=== PATIENT | male | born 1945 | race Caucasian/White ===

== ENCOUNTER 2016-05-25 06:10 | Inpatient (IN) | payer MEDICARE ==
[2016-05-22 12:57] LABS: Basophils # (auto) 0.1 uL; Basophils % (auto) 0.7 % (0.0-2.0); Eosinophils # (auto) 0.3 uL; Eosinophils % (auto) 3.4 % (0.0-7.0); Hematocrit 42.2 % (41.0-53.0); Hemoglobin 13.7 g/dL (13.5-17.5); Lymphocytes # (auto) 2.6 uL; Lymphocytes % (auto) 35.5 % (10.0-50.0); Mean Corpuscular Hemoglobin 28.8 pg (28.0-32.0); Mean Corpuscular Hgb Conc. 32.4 g/dL (32.0-36.0); Mean Corpuscular Volume 88.9 fL (80.0-100.0); Monocytes # (auto) 0.6 uL; Monocytes % (auto) 7.6 % (0.0-12.0); Neutrophils # (auto) 3.9 uL; Neutrophils % (auto) 52.8 % (37.0-80.0); Platelet Count (auto) 245 10^3/uL (140-450); SUSPECT VIEW TRANSMISSION; White Blood Cell 7.4 10^3/uL (4.4-10.8)
[2016-05-22 13:00] LABS: Urine Bilirubin Negative (Negative); Urine Blood Negative /uL (Negative); Urine Color Yellow (Yellow); Urine Glucose Normal (Normal); Urine Ketone Negative (Negative); Urine Nitrite Negative (Negative); Urine RBC <1 /hpf (0 - 3); Urine Urobilinogen Normal (Negative); Urine pH 6.5 (5.0-8.0)
[2016-05-22 13:15] LABS: Calcium 8.9 mg/dL (8.5-10.1); Potassium 4.2 mmol/L (3.5-5.1)
[2016-05-22 13:17] LABS: INR 1.04 (0.9-1.15); Partial Thromboplastin Time 28.3 sec (22.64-33.71); Prothrombin Time 10.7 sec (9.37-12.3)
[2016-05-22 13:18] LABS: BUN/Creatinine Ratio 13.3
[~2016-05-25] VITALS: Ht 170.2 cm; Wt 80.9 kg
[2016-05-25] MEDS ORDERED: SUCCINYLCHOLINE CHLORIDE 20 MG/ML 10ML VIAL IV ONE (06:57)
[2016-05-25] MEDS ORDERED: fentaNYL CITRATE 100 MCG/2 ML VL ONE (07:01)
[2016-05-25] MEDS ORDERED: MIDAZOLAM HCL 1MG/1ML-2 ML VIAL ONE (07:02)
[2016-05-25] MEDS ORDERED: PROPOFOL 10 MG/ML 20 ML IV ONE (07:02)
[2016-05-25] MEDS ORDERED: ONDANSETRON HCL 4 MG/2 ML VIAL ONE (07:02)
[2016-05-25] MEDS ORDERED: ROCURONIUM 10MG/ML 10ML VIAL IV ONE (07:02)
[2016-05-25] MEDS ORDERED: PROMETHAZINE HCL 25 MG/ML 1ML IM ONE (07:30)
[2016-05-25] MEDS ORDERED: HYDROmorphone HCL 2 MG/ML VL IV PRN (07:30)
[2016-05-25] MEDS ORDERED: LEVOFLOXACIN 500MG 100 ML IV ONE (07:49)
[2016-05-25] MEDS ORDERED: ePHEDrine SULFATE 50 MG/ML AMP ONE (08:13)
[2016-05-25] MEDS ORDERED: FUROSEMIDE 20 MG/2 ML VIAL IV ONE (08:13)
[2016-05-25] MEDS ORDERED: GLYCOPYRROLATE 0.2 MG/ML 1ML VIAL ONE (08:52)
[2016-05-25] MEDS ORDERED: NEOSTIGMINE 1 MG/ML INJ (10mg/10ML VIAL) ONE (08:52)
[2016-05-25] MEDS ORDERED: NITROGLYCERIN 0.4 MG SL TAB SL PRN (11:45)
[2016-05-25 12:49] VITALS: BP 145/97
[2016-05-25 13:10] VITALS: BP 145/97
[2016-05-25 16:59] VITALS: BP 104/65
[2016-05-25 22:00] VITALS: BP 124/72
[2016-05-26 05:00] VITALS: BP 109/78
[2016-05-26 08:13] VITALS: BP 134/80
[2016-05-26] MEDS ORDERED: ACETAMINOPHEN 500 MG TAB PO PRN (12:15)
[2016-05-26 12:26] VITALS: BP 123/79
[2016-05-26 14:55] VITALS: BP 123/79
== END 2016-05-26 15:30 | disposition home or self-care (01) | DRG 708 ==
LOC: SUR 06:10 → WEST WING 06:11
PROVIDERS: ADMIT Urology; ATTEND Urology
PROC: 0V503ZZ Destruction of Prostate, Percutaneous Approach (ICD-10-PCS; principal; 2016-05-25 07:59)
DX: C61 Malignant neoplasm of prostate (principal); E78.5 Hyperlipidemia, unspecified; I10 Essential (primary) hypertension; Z88.0 Allergy status to penicillin
CPT/HCPCS: 36415; 80048; 81001; 85025; 85049; 85610; 85730; 87086; C2618; J0330; J1956; J2250; J2405; J2704

== ENCOUNTER 2017-02-25 23:37 | Emergency (ER) | payer MEDICARE ==
[~2017-02-25] VITALS: Ht 177.8 cm; Wt 86.2 kg
[2017-02-26] MEDS ORDERED: NIFEdipine 10 MG CAP PO ONE (00:45)
[2017-02-26 01:08] LABS: Basophils # (auto) 0.3 uL; Basophils % (auto) 3.5 % (0.0-2.0); Eosinophils # (auto) 0.4 uL; Eosinophils % (auto) 4.8 % (0.0-7.0); Hematocrit 40.4 % (41.0-53.0); Hemoglobin 13.5 g/dL (13.5-17.5); Lymphocytes # (auto) 2.3 uL; Lymphocytes % (auto) 28.4 % (10.0-50.0); Mean Corpuscular Hemoglobin 29.2 pg (28.0-32.0); Mean Corpuscular Hgb Conc. 33.4 g/dL (32.0-36.0); Mean Corpuscular Volume 87.5 fL (80.0-100.0); Mean Platelet Volume 8.8 fL (6.9-10.8); Monocytes # (auto) 0.6 uL; Monocytes % (auto) 7.9 % (0.0-12.0); Neutrophils # (auto) 4.4 uL; Neutrophils % (auto) 55.4 % (37.0-80.0); Nucleated Red Blood Cells % 0.1 %; Platelet Count (auto) 190 10^3/uL (140-450); Red Cell Distribution Width 14.5 % (11.8-14.3)
[2017-02-26 01:23] LABS: INR 0.96 (0.9-1.15); Partial Thromboplastin Time 28.5 sec (22.64-33.71); Prothrombin Time 10.5 sec (9.37-12.3)
[2017-02-26 01:26] LABS: Albumin 3.5 g/dL (3.4-5.0); BUN/Creatinine Ratio 21.2; Calcium 8.8 mg/dL (8.5-10.1)
[2017-02-26 01:29] LABS: Bilirubin, Total 0.3 mg/dL (0.2-1.0); Total Protein 7.6 g/dL (6.4-8.2)
[2017-02-26 03:48] VITALS: BP 132/77
== END 2017-02-26 04:26 | disposition home or self-care (01) ==
LOC: ER 23:40
DX: R04.0 Epistaxis (principal); I10 Essential (primary) hypertension; E78.5 Hyperlipidemia, unspecified; Z88.0 Allergy status to penicillin
CPT/HCPCS: 36415; 80053; 85025; 85610; 85730

== ENCOUNTER 2017-04-14 08:54 | Emergency (ER) | payer MEDICARE, BC ==
[~2017-04-14] VITALS: Ht 170.2 cm; Wt 81.6 kg
[2017-04-14] MEDS ORDERED: TETRACAINE HCL 0.5% OPTH(EYE) SOLN 4ML EACHEYE ONE (09:30)
[2017-04-14 09:45] VITALS: BP 180/92
[2017-04-14] MEDS ORDERED: FLUORESCEIN SOD 1 MG TEST STRIP OP ONE (09:45)
== END 2017-04-14 10:09 | disposition home or self-care (01) ==
LOC: ER 08:54
DX: S05.01XA Injury of conjunctiva and corneal abrasion without foreign body, right eye, initial encounter (principal); I10 Essential (primary) hypertension; E78.5 Hyperlipidemia, unspecified; Z88.0 Allergy status to penicillin; X58.XXXA Exposure to other specified factors, initial encounter; Y93.89 Activity, other specified; Y92.89 Other specified places as the place of occurrence of the external cause; Y99.8 Other external cause status

== ENCOUNTER 2017-04-27 11:42 | Emergency (ER) | payer MEDICARE, BC ==
[~2017-04-27] VITALS: Ht 170.2 cm; Wt 81.6 kg
[2017-04-27 11:50] VITALS: BP 151/102
[2017-04-27] MEDS ORDERED: NEOMYCIN-BACITRACIN-POLYM UNITDOSE PKG TOP OINT TOP ONE (13:30)
== END 2017-04-27 15:15 | disposition home or self-care (01) ==
LOC: EDUNIT# 11:42 → EDBD 11:42 → ER 11:42
DX: R04.0 Epistaxis (principal); I10 Essential (primary) hypertension; E78.5 Hyperlipidemia, unspecified; Z88.0 Allergy status to penicillin
CPT/HCPCS: 30901

== ENCOUNTER 2021-05-11 21:53 | Emergency (ER) | payer MEDICARE, OTHER ==
[~2021-05-11] VITALS: Ht 170.2 cm; Wt 90.7 kg
[2021-05-11 21:56] VITALS: BP 132/84
[2021-05-12 00:05] LABS: Basophils # (auto) 0.1 10 ^3/uL (0-0.2); Basophils % (auto) 1.5 % (0.0-2.0); Eosinophils # (auto) 0.4 10 ^3/uL (0-0.8); Hematocrit 35.8 % (41.0-53.0); Hemoglobin 12.2 g/dL (13.5-17.5); Lymphocytes # (auto) 3.1 10 ^3/uL (0.4-5.4); Lymphocytes % (auto) 34.2 % (10.0-50.0); Mean Corpuscular Hemoglobin 29.9 pg (28.0-32.0); Mean Corpuscular Hgb Conc. 34.1 g/dL (32.0-36.0); Mean Corpuscular Volume 87.7 fL (80.0-100.0); Monocytes # (auto) 0.9 10 ^3/uL (0-1.3); Monocytes % (auto) 9.7 % (0.0-12.0); Neutrophils # (auto) 4.4 10 ^3/uL (1.6-8.6); Neutrophils % (auto) 49.6 % (37.0-80.0); Red Blood Cells 4.08 10^6/uL (4.5-5.90); Red Cell Distribution Width 15.7 % (11.8-14.3); White Blood Cell 8.9 10^3/uL (4.4-10.8)
[2021-05-12 00:23] LABS: Albumin 3.7 g/dL (3.4-5.0); Calcium 8.8 mg/dL (8.5-10.1); Magnesium 2.8 mg/dL (1.6-2.6); Potassium 4.5 mmol/L (3.5-5.1)
[2021-05-12 00:25] LABS: INR 1.04 (0.9-1.15)
[2021-05-12 01:15] LABS: BUN/Creatinine Ratio 22.1; Bilirubin, Total 0.3 mg/dL (0.2-1.0); Total Protein 7.5 g/dL (6.4-8.2)
== END 2021-05-12 05:37 | disposition left against medical advice (07) ==
LOC: ER 22:01
DX: K92.2 Gastrointestinal hemorrhage, unspecified (principal); Z53.21 Procedure and treatment not carried out due to patient leaving prior to being seen by health care provider
CPT/HCPCS: 36415; 71045; 74176; 80053; 83735; 84484; 85025; 85610; 86850; 86900; 86901; 93005

== ENCOUNTER 2024-09-15 07:09 | Inpatient (IN) | payer OTHER ==
[2024-09-15] VITALS (10 sets, daily range): BP systolic 93–125; BP diastolic 58–74; PULSE 54–74; RESP 9–18; TEMP 97–98.1; O2SAT 93–95
[~2024-09-15] VITALS: Ht 170.2 cm; Wt 100.3 kg
[~2024-09-15 07:09] MED LIST: AMLO1TAB23 PO; ASPI1TAB20 PO; DOCU-94 PO; MELO15TA29 PO; PERCOT PO; TAMS-35 PO
[2024-09-15] MEDS ORDERED: PROPOFOL 10 MG/ML 20 ML IV ONE (08:19)
[2024-09-15] MEDS ORDERED: ONDANSETRON HCL 4 MG/2 ML VIAL ONE (08:19)
[2024-09-15] MEDS ORDERED: fentaNYL CITRATE 100 MCG/2 ML VL ONE (08:19)
[2024-09-15] MEDS ORDERED: KETAMINE 50mg/ML 1ml syringe ONE (08:19)
[2024-09-15] MEDS ORDERED: MORPHINE SULF PF 5 MG/10 ML VIAL ONE (08:19)
[2024-09-15] MEDS ORDERED: MIDAZOLAM HCL 2MG/2ML 2ml VIAL (1mg/ml) ONE (08:19)
[2024-09-15] MEDS ORDERED: ePHEDrine SULFATE 50 MG/ML AMP ONE (08:19)
[2024-09-15] MEDS ORDERED: GLYCOPYRROLATE 0.2 MG/ML 1ML VIAL ONE (08:20)
[2024-09-15] MEDS: PREGABALIN CAPSULE 75 MG CAP PO ONE (09:30)
[2024-09-15] MEDS: ACETAMINOPHEN IV 1000 MG/100ML (10MG/ML) IV ONE (09:30)
[2024-09-15] MEDS: CELECOXIB 100 MG CAP PO ONE (09:30)
[2024-09-15] MEDS ORDERED: KETOROLAC TROMETH 30 MG/ML 1ML VIAL ONE (10:27)
[2024-09-15] MEDS ORDERED: HYDROmorphone HCL 2 MG/ML VL/or syr IV PRN (11:00)
[2024-09-15] MEDS ORDERED: ONDANSETRON HCL 4 MG/2 ML VIAL IV PRN ×2 (11:00→11:15)
[2024-09-15] MEDS ORDERED: MORPHINE SULFATE INJ 2 MG/ml SYRG IV PRN (11:00)
[2024-09-15] MEDS ORDERED: NITROGLYCERIN 0.4 MG SL TAB SL PRN (11:00)
[2024-09-15] MEDS ORDERED: ceFAZolin 1GM/50ML 50 ML IV SCH (11:00)
--- NOTE | 2024-09-15 11:01 | DVHOP2 ---
Operative Report - 2 Report Details Date: 09/15/24 Preop Diagnosis: Left knee osteoarthritis Postop Diagnosis: Left knee osteoarthritis Surgeon: Frankie Palencia MD Supply Chain Procurement Manager: vKng GUZMÁN Anesthesiologist: Nir LUIS Anesthesia: Local, Regional Implant: [employer] Size 6 femur CR/ Size 6 tibia/ Size 9 Poly/ 32 mm patella Consent: The patient was informed of the risks and benefits of the procedure. These include but are not limited to complications of anesthesia, postoperative infection, incomplete relief of symptoms, recurrence of symptoms, damage to blood vessels, nerves and tendons, deep venous thrombosis, pulmonary embolism and possible need for repeat surgery in the future. Estimated Blood Loss: 50 cc Name of Procedure Performed Left total knee arthroplasty using computer navigation Procedure Details Procedure Details: FINDINGS: degenerative disease with grade IV changes with valgus deformity; hx of ACL surgery; large osteophytes with 15 degree flexion contracture/ 10 degree varus contracture INDICATION: This patient has failed non-operative treatments for knee arthritis and is now indicated for a total knee replacement. Preoperatively in the waiting area as well as in the office, I had a long discussion with the patient regarding the plan, the expected outcome, the risks, benefits, and alternatives of surgery. The risks include, but are not limited to, infection (which may require future surgery and removal of implants) , bleeding (which may require a transfusion), damage to nerves, arteries, veins, tendons, muscles and other adjacent structures. Also discussed the possibilities of intraoperative fractures, implant loosening, heterotopic bone formation, and revision for variety of reasons, and medical complications etc. This was discussed at length and consent has been obtained. DESCRIPTION OF PROCEDURE: In the preoperative holding area, the consent was reviewed and the appropriate extremity was verified by the patient and marked with my initials. The patient was then transferred to the operating theatre. Appropriate anesthesia was induced. All bony prominences were well padded. A time out was performed verifying the side and site of surgery according to standard protocol. Preoperative antibiotics were given 10 minutes prior to tourniquet inflation. Tranexamic was given. A well padded thigh tourniquet was applied. The extremity was then prepped and draped in the usual sterile fashion. The extremity was exsanguinated and the tourniquet was inflated. We then made a mid-line incision, which we continued to the underlying capsular tissue. We performed a medial parapatellar arthrotomy. We periosteally exposed the proximal tibia, excised the anterior fat pad and synovium from the distal aspect of the femur. We then subluxed the patella and brought the knee up into flexion. The lateral meniscus, ACL released. We used the appropriate guide with attached computer navigation to secure the distal femoral cutting block to the femur with pins and completed the distal femoral cut in 0 degrees to the mechanical axis with an oscillating saw. We removed the distal femoral cutting block and turned our attention to the tibia. We used the extramedullary tibial alignment guide with computer navigation to secure the proximal tibial cutting block to the tibia with pins, setting it for a 1mm cut from the more involved side, medially and completed the proximal tibial cut. We then used the spacer block and alignment rakesh to check the varus- valgus angle of our cuts and the extension gap. Patient noted to be tight medially that was tight so medial release done. The knee was then balanced in extension to varus/valgus stress. We marked our femoral anatomy, including Sidney's line and the epicondylar axis. Using that as a rotational guide, we used the sizing guide to size our femur properly, using a stylus to ensure there would be no notching. We then used the AP cutting guide to make our anterior and posterior cuts and chamfer cuts with an oscillating saw. We again checked the flexion and extension gaps and coronal balancing. Next, we sized our tibia and secured a baseplate with appropriate rotation with pins. We placed a trial femur in position and completed preparation of the notch with reamers and box osteotome and placed a trial notch in position. We used trials to choose our liner size and then placed the liner in place and reduced the knee. We used an oscillating saw to resurface the patella, and used a guide to choose the button size and completed patella preparation with the drill. We then placed a trial button in place. At this point, we checked our seven parameters: 1) Limb alignment 2) Extension 3) Flexion against gravity 4) Flexion stability 5) Varus-valgus balancing 6) Component rotation 7) Patella tracking We were satisfied with these and removed all trials with the exception of the baseplate. We completed preparation of the tibia with the appropriate reamer and keel impactor and then removed the baseplate. We placed a bone plug in the distal femur and then irrigated and dried all bony surfaces and injected our pain cocktail. Cement with antibiotics was hand-mixed on the back table. We thumb impacted cement into the proximal tibia, distal femur and patella and impacted our tibial, femoral and patellar components into position. Excess cement was removed with curettes. We impacted our liner and reduced the knee and held it with axial loading until all cement hardened. We did a juanita- articular cocktail block. Once all cement had hardened, we brought the knee back up into flexion and used an osteotome to remove excess cement. We released the tourniquet and achieved hemostasis where necessary. A dilute betadine solution (17.5mL in 500mL saline) was used to wash the joint and left to sit for 3 minutes. This was then irrigated out with copious amounts of pulse lavage. We sprinkled 1g vancomycin powder below the fascia and 1g above the fascia. We copiously irrigated the knee. We re-checked our seven parameters. We closed our capsular incision with a PDS style suture. We irrigated further. We closed the subcutaneous tissue with Vicryl suture and re-approximated the skin with Clare. We verified all lower extremity compartments were soft and compressible and that we had intact distal pulses. We wrapped the extremity in sterile Webril and brady bandage. The patient was transferred to the recovery room in stable condition. Condition Good Disposition Still a Patient FRANKIE PALENCIA . September 15, 2024 11:01
[2024-09-15] MEDS ORDERED: DexAMETHasone SOD PHOS 10MG/1ML VIAL INJ IV PRN (11:15)
[2024-09-15] MEDS ORDERED: NALOXONE HCL 0.4 MG/ML VIAL IV PRN (11:15)
--- NOTE | 2024-09-15 12:28 | DVH ---
Indication: S/P SURGERY Technique: 3 views left knee Comparison: None FINDINGS/IMPRESSION: Total left knee arthroplasty in anatomic alignment. Expected postoperative changes including surroun ding soft tissue emphysema, edema. Large suprapatellar effusion. Atherosclerotic calcification disea se.
[2024-09-15] MEDS: diphenhdrAMINE HCL 50 MG/1 ML VL IV PRN (14:12)
--- NOTE | 2024-09-15 16:42 | DVHINCON2 ---
Date Seen: September 16, 2024 Referring Physician ORTHOPEDIC SURGEON. Reason for Consultation MEDICAL MANAGEMENT. History of Present Illness 79-YEAR-OLD MALE WITH A KNOWN HISTORY OF HYPERTENSION, BPH, INITIALLY PRESENTED TO THE HOSPITAL FOR ELECTIVE PROCEDURE FOR LEFT KNEE DEGENERATIVE JOINT DISEASE STATUS POST LEFT KNEE TOTAL ARTHROPLASTY. PATIENT IS CURRENTLY DENIES ANY COMPLAINTS. Past Medical History HYPERTENSION BPH LEFT KNEE DEGENERATIVE JOINT DISEASE. Past Surgical History STATUS POST LEFT TOTAL KNEE ARTHROPLASTY. Family History: Cancer G8 FATHER FH: muscular dystrophy G8 MOTHER G8 BROTHER Family history: Diabetes mellitus G8 SISTER Allergies: Coded Allergies: Penicillins (Verified Allergy, Unknown, 05/22/16) Home Meds Reported Medications Aspirin (Aspir-81) 81 Mg Tab, 81 MG PO DAILY, TAB 09/12/24 Meloxicam (Meloxicam) 15 Mg Tab, 15 MG PO PRN, TAB 09/12/24 Docusate Sodium (Colace) 100 Mg Cap, 100 MG PO BIDP, CAP 09/12/24 Oxycodone W/ Acetaminophen (Percocet 5/325MG) 1 Tab Tb, 1 TAB PO Q6HP, TAB 09/12/24 Tamsulosin Hcl (Flomax) 0.4 Mg Cap, 0.4 MG PO DAILY, CAP 09/12/24 Amlodipine Besylate (Amlodipine Besylate) 10 Mg Tab, 10 MG PO DAILY, TAB 09/12/24 Current Medications Current Medications Medications (Trade) Dose Ordered Sig/Reagan Route PRN Reason Start Time Stop Time Status Last Admin Tamsulosin HCl (Flomax) 0.4 mg DAILY PO 09/16/24 10:00 Patient Own Medication 10 mg DAILY PO 09/16/24 10:00 UNV Lactated Ringer's 1,000 ml @ 100 mls/hr Q10H IV 09/15/24 11:00 Sodium Chloride (Saline Lock Ns) 10 ml Q8HR IV 09/15/24 14:00 Cefazolin Sodium 50 ml @ 50 mls/hr Q6H IV 09/15/24 11:00 09/15/24 23:59 Oxycodone/ Acetaminophen (Percocet 5/ 325MG Tablet) 1 tab Q4HP PRN PO MODERATE PAIN 09/15/24 11:00 Hydromorphone HCl (Dilaudid Injection) 1 mg Q2HP PRN IV SEVERE PAIN (7-10 PAIN SCALE) 09/15/24 11:00 Ondansetron HCl (Zofran) 4 mg Q6HP PRN IV NAUSEA / VOMITING 09/15/24 11:00 Docusate Sodium (Colace Capsule) 100 mg Q12HR PO 09/15/24 22:00 Nitroglycerin (Ntrostat Sublingual) 0.4 mg Q5MINP PRN SL FOR CHEST PAIN 09/15/24 11:00 Morphine Sulfate 2 mg Q30M PRN IV FOR CHEST PAIN 09/15/24 11:00 Cefepime HCl 50 ml @ 12.5 mls/hr DAILY IV 09/16/24 10:00 Diphenhydramine HCl (Benadryl Injection) 25 mg Q4HP PRN IV FOR ITCHING 09/15/24 11:15 09/15/24 14:12 Ondansetron HCl (Zofran) 4 mg Q4HP PRN IV NAUSEA / VOMITING 09/15/24 11:15 Naloxone HCl (Narcan) 0.2 mg Q5M PRN IV For respirations < than 10/min 09/15/24 11:15 09/15/24 14:07 DC Dexamethasone Sodium Phosphate (Decadron Injection) 10 mg QUILLER HAND PRN IV FOR ITCHING 09/15/24 11:15 09/15/24 14:07 DC Ketorolac Tromethamine (Toradol Injection) 15 mg Q6HP PRN IV MODERATE PAIN (4-6 PAIN SCALE) 09/15/24 11:15 09/20/24 11:14 Amlodipine Besylate (Norvasc Tablet) 10 mg DAILY PO 09/16/24 10:00 Review of Systems TWELVE REVIEW OF SYSTEM ARE NEGATIVE BESIDES MENTIONED ABOVE. Vital Signs Vital Signs Date Time Temp Pulse Resp B/P (MAP) Pulse Ox O2 Delivery O2 Flow Rate FiO2 09/15/24 15:00 62 10 121/66 (84) 96 09/15/24 13:30 Mask 10.0 94 09/15/24 11:08 98.0 98.0 Assessment 79-YEAR-OLD MALE WITH A KNOWN HISTORY OF HYPERTENSION, BPH, LEFT KNEE DEGENERATIVE JOINT DISEASE IS HERE FOR ELECTIVE PROCEDURE. 1. HYPERTENSION CONTROLLED 2. BPH RESUME TAMSULOSIN 3. LEFT KNEE DEGENERATIVE JOINT DISEASE STATUS POST LEFT TOTAL KNEE ARTHROPLASTY -PAIN MEDS NEEDED PHYSICAL THERAPY EVALUATION AND TREATMENT, RESUME HOME MEDICATIONS. Plan discussed with: Spouse Date of Service: September 15, 2024 Billing Provider: JAS SU MD Common Visit Codes: NOT BILLABLE JAS SU MD September 15, 2024 16:41
[2024-09-15] MEDS: LACTATED RINGER'S 1,000 ML IV SCH (21:00)
[2024-09-15] MEDS: ceFAZolin 1GM/50ML 50 ML IV SCH (21:50)
[2024-09-15] MEDS: DOCUSATE SOD 100 MG CAP PO SCH (22:03)
[2024-09-15] MEDS: SODIUM CHLOR 0.9% PF (SALINE LOCK) 10ML VIAL/SYR IV SCH (22:07)
[2024-09-16] VITALS (24 sets, daily range): BP systolic 0–133; BP diastolic 0–89; PULSE 0–82; RESP 0–18; TEMP 98–98.6; O2SAT 0–98
--- NOTE | 2024-09-16 08:01 | DVHPN2 ---
Progress Note Date Seen: September 16, 2024 Medical Necessity Reason Pt with a Central, PICC or Fol: Yes The following are medically ne: Jolley Catheter Subjective Patient reports: No new complaints Objective vital signs Vital Sign Date Time Temp Pulse Resp B/P (MAP) Pulse Ox O2 Delivery O2 Flow Rate FiO2 09/16/24 07:00 82 16 96 09/16/24 05:00 98.2 123/67 (85) 98.2 09/15/24 21:00 3.0 09/15/24 20:00 Simple Mask* 50 Total Intake and Output 09/15/24 09/15/24 09/16/24 15:00 23:00 07:00 Intake Total 100 ml 170 ml 1300 ml Output Total 250 ml Balance 100 ml 170 ml 1050 ml medications Current Medications Medications Dose Ordered Sig/Reagan Route Start Time Stop Time Status Last Admin Dose Admin Tamsulosin HCl 0.4 mg DAILY PO 09/16/24 10:00 Patient Own Medication 10 mg DAILY PO 09/16/24 10:00 UNV Lactated Ringer's 1,000 ml @ 100 mls/hr Q10H IV 09/15/24 11:00 09/15/24 21:00 100 MLS/HR Sodium Chloride 10 ml Q8HR IV 09/15/24 14:00 09/16/24 06:00 10 ML Oxycodone/ Acetaminophen 1 tab Q4HP PRN PO 09/15/24 11:00 Hydromorphone HCl 1 mg Q2HP PRN IV 09/15/24 11:00 Ondansetron HCl 4 mg Q6HP PRN IV 09/15/24 11:00 Docusate Sodium 100 mg Q12HR PO 09/15/24 22:00 09/15/24 22:03 100 MG Nitroglycerin 0.4 mg Q5MINP PRN SL 09/15/24 11:00 Morphine Sulfate 2 mg Q30M PRN IV 09/15/24 11:00 Cefepime HCl 50 ml @ 12.5 mls/hr DAILY IV 09/16/24 10:00 Diphenhydramine HCl 25 mg Q4HP PRN IV 09/15/24 11:15 09/15/24 14:12 25 MG Ondansetron HCl 4 mg Q4HP PRN IV 09/15/24 11:15 Ketorolac Tromethamine 15 mg Q6HP PRN IV 09/15/24 11:15 09/20/24 11:14 Amlodipine Besylate 10 mg DAILY PO 09/16/24 10:00 Cefazolin Sodium 50 ml @ 50 mls/hr Q6H IV 09/15/24 22:00 09/16/24 10:59 09/16/24 03:30 50 MLS/HR Examination: GENERAL:Normal, MSK:Abnormal Problem List/Assessment/Plan Problem List/Assessment/Plan 79 year old male who is s/p Left TKA POD 1 1. Pain control 2. WBAT LLE with use of walker 3. CPM as ordered 4. Physical therapy 5. d/c planning for home tomorrow 6. d/c jolley cath to encourage ambulation and reduce risk for infection Plan discussed with: Patient Date of Service: September 16, 2024 Billing Provider: FAMILIA PALENCIA MD Common Visit Codes: NOT BILLABLE ZULAY MORENO NP September 16, 2024 08:01
[2024-09-16] MEDS ORDERED: PATIENTS OWN MEDICATION (Amlodipine Besylate 10 MG) PO SCH (10:00)
[2024-09-16] MEDS: amLODIPine BESYLATE 5 MG TAB PO SCH (10:00)
[2024-09-16] MEDS: TAMSULOSIN HYDROCHLORIDE 0.4 MG CAP PO SCH (10:01)
[2024-09-16] MEDS: CEFEPIME 1GM/ 50ML 50 ML IV SCH (12:34)
--- NOTE | 2024-09-16 16:16 | DVHPN2 ---
Subjective OVERNIGHT EVENTS NOTED. Changes from previous H/P or p: No Changes Objective Vitals Vital Signs Date Time Temp Pulse Resp B/P (MAP) Pulse Ox O2 Delivery O2 Flow Rate FiO2 09/16/24 15:52 74 16 96 09/16/24 13:00 98.1 124/64 (84) 98.1 09/16/24 08:10 Simple Mask* 6 50 Intake/Output Intake and Output 09/16/24 07:00 Intake Total 1570 ml Output Total 250 ml Balance 1320 ml Intake Oral 520 ml IV Total 1050 ml Output Urine Total 250 ml Medications Current Medications Medications Dose Ordered Sig/Reagan Route Start Time Stop Time Status Last Admin Dose Admin Tamsulosin HCl 0.4 mg DAILY PO 09/16/24 10:00 09/16/24 10:01 0.4 MG Patient Own Medication 10 mg DAILY PO 09/16/24 10:00 UNV Lactated Ringer's 1,000 ml @ 100 mls/hr Q10H IV 09/15/24 11:00 09/16/24 12:40 100 MLS/HR Sodium Chloride 10 ml Q8HR IV 09/15/24 14:00 09/16/24 14:22 10 ML Oxycodone/ Acetaminophen 1 tab Q4HP PRN PO 09/15/24 11:00 Hydromorphone HCl 1 mg Q2HP PRN IV 09/15/24 11:00 Ondansetron HCl 4 mg Q6HP PRN IV 09/15/24 11:00 Docusate Sodium 100 mg Q12HR PO 09/15/24 22:00 09/16/24 10:10 100 MG Nitroglycerin 0.4 mg Q5MINP PRN SL 09/15/24 11:00 Morphine Sulfate 2 mg Q30M PRN IV 09/15/24 11:00 Cefepime HCl 50 ml @ 12.5 mls/hr DAILY IV 09/16/24 10:00 09/16/24 12:34 12.5 MLS/HR Diphenhydramine HCl 25 mg Q4HP PRN IV 09/15/24 11:15 09/15/24 14:12 25 MG Ondansetron HCl 4 mg Q4HP PRN IV 09/15/24 11:15 Ketorolac Tromethamine 15 mg Q6HP PRN IV 09/15/24 11:15 09/20/24 11:14 Amlodipine Besylate 10 mg DAILY PO 09/16/24 10:00 09/16/24 10:00 10 MG Assessment/Plan Assessment/Plan 79-YEAR-OLD MALE WITH A KNOWN HISTORY OF HYPERTENSION, BPH, LEFT KNEE DEGENERATIVE JOINT DISEASE IS HERE FOR ELECTIVE PROCEDURE. 1. HYPERTENSION CONTROLLED 2. BPH RESUME TAMSULOSIN 3. LEFT KNEE DEGENERATIVE JOINT DISEASE STATUS POST LEFT TOTAL KNEE ARTHROPLASTY -PAIN MEDS NEEDED PHYSICAL THERAPY EVALUATION AND TREATMENT, RESUME HOME MEDICATIONS. Plan discussed with: Spouse Date of Service: September 16, 2024 Billing Provider: JAS SU MD Common Visit Codes: NOT BILLABLE JAS SU MD September 16, 2024 16:16
[2024-09-16] MEDS: OXYCODONE W/ ACETAMINOPHEN 5/325MG TABLET PO PRN (16:17)
[2024-09-17] VITALS (9 sets, daily range): BP systolic 110–156; BP diastolic 65–88; PULSE 67–80; RESP 18–20; TEMP 97–99; O2SAT 95–98
[2024-09-17] MEDS: KETOROLAC TROMETH 30 MG/ML 1ML VIAL IV PRN (12:01)
--- NOTE | 2024-09-17 15:01 | DVHPN2 ---
Subjective OVERNIGHT EVENTS NOTED. Changes from previous H/P or p: No Changes Objective Vitals Vital Signs Date Time Temp Pulse Resp B/P (MAP) Pulse Ox O2 Delivery O2 Flow Rate FiO2 09/17/24 13:00 97.4 71 20 130/65 (86) 98 97.4 09/17/24 08:00 Simple Mask* 6 50 Intake/Output Intake and Output 09/17/24 07:00 Intake Total 1400 ml Output Total 5200 ml Balance -3800 ml Intake Oral 1100 ml IV Total 300 ml Output Urine Total 5200 ml Medications Current Medications Medications Dose Ordered Sig/Reagan Route Start Time Stop Time Status Last Admin Dose Admin Tamsulosin HCl 0.4 mg DAILY PO 09/16/24 10:00 09/17/24 09:01 0.4 MG Patient Own Medication 10 mg DAILY PO 09/16/24 10:00 UNV Lactated Ringer's 1,000 ml @ 100 mls/hr Q10H IV 09/15/24 11:00 09/17/24 02:05 100 MLS/HR Sodium Chloride 10 ml Q8HR IV 09/15/24 14:00 09/16/24 22:19 10 ML Oxycodone/ Acetaminophen 1 tab Q4HP PRN PO 09/15/24 11:00 09/17/24 09:02 1 TAB Hydromorphone HCl 1 mg Q2HP PRN IV 09/15/24 11:00 Ondansetron HCl 4 mg Q6HP PRN IV 09/15/24 11:00 Docusate Sodium 100 mg Q12HR PO 09/15/24 22:00 09/17/24 09:01 100 MG Nitroglycerin 0.4 mg Q5MINP PRN SL 09/15/24 11:00 Morphine Sulfate 2 mg Q30M PRN IV 09/15/24 11:00 Cefepime HCl 50 ml @ 12.5 mls/hr DAILY IV 09/16/24 10:00 09/17/24 09:00 12.5 MLS/HR Diphenhydramine HCl 25 mg Q4HP PRN IV 09/15/24 11:15 09/15/24 14:12 25 MG Ondansetron HCl 4 mg Q4HP PRN IV 09/15/24 11:15 Ketorolac Tromethamine 15 mg Q6HP PRN IV 09/15/24 11:15 09/20/24 11:14 09/17/24 12:01 15 MG Amlodipine Besylate 10 mg DAILY PO 09/16/24 10:00 09/17/24 09:00 10 MG Assessment/Plan Assessment/Plan 79-YEAR-OLD MALE WITH A KNOWN HISTORY OF HYPERTENSION, BPH, LEFT KNEE DEGENERATIVE JOINT DISEASE IS HERE FOR ELECTIVE PROCEDURE. 1. HYPERTENSION CONTROLLED 2. BPH RESUME TAMSULOSIN 3. LEFT KNEE DEGENERATIVE JOINT DISEASE STATUS POST LEFT TOTAL KNEE ARTHROPLASTY -PAIN MEDS NEEDED PHYSICAL THERAPY EVALUATION AND TREATMENT, RESUME HOME MEDICATIONS. Plan discussed with: Patient Date of Service: September 17, 2024 Billing Provider: JAS SU MD Common Visit Codes: NOT BILLABLE JAS SU MD September 17, 2024 15:01
[2024-09-18] VITALS (8 sets, daily range): BP systolic 129–163; BP diastolic 67–97; PULSE 69–94; RESP 17–19; TEMP 98–99.1; O2SAT 92–97
--- NOTE | 2024-09-18 07:53 | DVHDS2 ---
Discharge Summary Date of Admission September 15, 2024 at 10:52 Date of Discharge: September 18, 2024 Wounds: 1. You will likely have a gel-type dressing over your wound, you may keep this on for 7-14 days after leaving the hospital until your first post-op visit, unless it becomes soiled or your skin becomes irritated. If a wound vac dressing is placed on your knee this is to be left in place for one week and will be changed as needed. After your remove the dressing or wound vac, the home health nurse may place clean dry dressing over your wound. Keep wound covered, clean and dry for two weeks. 2. [place] will be removed during your initial post-op visit. If you have concerns about our wound, please call the office immediately. If nervous about staple removal can take pain pill one hour prior to appointment. 3. If there is drainage from your wound, change the dressing daily until it stops. If drainage lasts more than 10 days, call our office. 4. Low grade (up to 100 degrees) fever is common for the first week after surgery. You should take your temperature daily. If you have fevers of 101 or more, please call the office. Brief Hx & Hospital Course: s/p left total knee arthroplasty Condition at Discharge: Good Final Diagnosis/Problems List Left knee osteoarthritis Discharge Disposition: Custodial Facility Discharge Instruct/Medications Diet: Regular Diet comment: may advance diet as tolerated, drink plenty of fluids Activity comment: 1.You can bear as much weight as you tolerate on your knee unless specifically instructed otherwise. You may use the walking aid which you were discharged with and switch to a cane whenever you feel comfortable doing so. You should use an assistive device until you can walk comfortably without it. Keep in mind that every patient moves at their own speed of recovery so take your time. 2.A physical therapist will visit you at home. 3.Use CPM machine as instructed (6 hours a day) and increase flexion by 5 degrees daily. 4.High impact activity such as jumping, aerobics, tennis, and skiing are not permitted during the first 3 months after surgery. These activities can contribute to accelerated wear and should be done with caution after this time. Discuss this with your surgeon if you have questions. 5.Although a bath or whirlpool is NOT permitted during the first 2-3 weeks, you may shower as soon as you get home from the hospital provided there is no wound drainage. Place a dressing or covering over the wound when you shower. 6.Swimming is not permitted until the wound is healed, which typically occurs approximately 3-4 weeks after surgery. Follow Up/Referral: 1.Driving is not permitted within the first 2 weeks. 2.Your first postoperative visit will take place 2 weeks after discharge. Please call the office once you are home from the hospital to arrange this appointment. 3.Antibiotic preventative treatment is required before dental or other invasive procedures. Please ask your surgeon about this at your first postoperative visit. If you experience chest pain, shortness of breath or severe painful calf swelling, go to the nearest emergency room to be evaluated. Please call our office once your situation is stabilized. Medications: 1.You will be discharged with pain medication, a blood thinner (unless you were previously on a blood thinner prior to surgery) and stool softener. Please follow the instructions regarding these medications as provided by your nurse at the hospital upon discharge. 2.Blood clots in the leg are a known complication of surgery. It is very important that you take the medication to protect against clots. Depending on what you are discharged on typically it is Lovenox 40mg daily for 2 weeks or Aspirin 81mg twice daily for 4 weeks. After you finish this, you should then take baby Aspirin (81mg) once daily for 2 weeks. 3.You should restart all of your prescription medications once discharged from the hospital/surgery center unless specifically instructed otherwise. 4.Herbal supplements may be restarted 2 weeks after surgery. 5.If you have been given Coumadin as a blood thinner, please follow up with your ticketer during the first two weeks after surgery to review medications and overall medical well-being. 6.Please note that narcotic pain medication may cause constipation. Please remember to take stool softeners (Colace) when using narcotics to help reduce the change of constipation. You should not use alcohol together with narcotic medication. Discharge Statement: "Patient was advised to return to the ER or call 911 if any headaches, dizziness, shortness of breath, chest pain, abdominal pain, bleeding, fevers, or worsening of medical condition. Patient was counseled about treatment plan, medications, possible side effects, patientverbalized understanding. All questions were answered to the best of my ability. This discharge took greater then 30 minutes in planning, reviewing documentation, counseling the patient, and discussing with other team members." ASSESSMENT ASSESSMENT Assessment Left knee osteoarthritis ZULAY MORENO NP September 18, 2024 07:52
[2024-09-18] MEDS: CELECOXIB 100 MG CAP ONE (11:04)
[2024-09-18] MEDS: PREGABALIN CAPSULE 75 MG CAP ONE (11:05)
[2024-09-18] MEDS: ceFAZolin 2 GM/D5W50ml 50 ML IV ONE (11:06)
[2024-09-18] MEDS: ACETAMINOPHEN IV 100 ML IV ONE (11:06)
[2024-09-18] MEDS: TRANEXAMIC ACID 20 ML ONE (11:07)
[2024-09-18] MEDS: BUPIVACAINE HCL 50 ML ONE (11:07)
[2024-09-18] MEDS: diphenhdrAMINE HCL 50 MG/1 ML VL ONE (11:08)
[2024-09-18] MEDS: CEFEPIME 1GM/ 50ML 50 ML IV ONE (11:08)
[2024-09-18 15:52] LABS: Basophils # (auto) 0.1 10 ^3/uL (0-0.2); Eosinophils # (auto) 0.2 10 ^3/uL (0-0.8); Eosinophils % (auto) 1.7 % (0.0-7.0); Hematocrit 35.5 % (41.0-53.0); Lymphocytes # (auto) 1.4 10 ^3/uL (0.4-5.4); Lymphocytes % (auto) 14.6 % (10.0-50.0); Mean Corpuscular Hemoglobin 29.7 pg (28.0-32.0); Mean Corpuscular Hgb Conc. 33.9 g/dL (32.0-36.0); Mean Corpuscular Volume 87.5 fL (80.0-100.0); Monocytes # (auto) 1.1 10 ^3/uL (0-1.3); Monocytes % (auto) 11.4 % (0.0-12.0); Neutrophils % (auto) 71.3 % (37.0-80.0); Platelet Count (auto) 185 10^3/uL (140-450); Red Blood Cells 4.05 10^6/uL (4.5-5.90); Red Cell Distribution Width 14.9 % (11.8-14.3); White Blood Cell 9.8 10^3/uL (4.4-10.8)
[2024-09-18 16:03] LABS: Chloride 99 mmol/L (98-107)
[2024-09-18 16:04] LABS: Anion Gap 8 (5-15); Calcium 10.1 mg/dL (8.7-10.4); Carbon Dioxide 28 mmol/L (20-31); Sodium 135 mmol/L (136-145)
[2024-09-18 16:09] LABS: BUN/Creatinine Ratio 19.5 (10.0-20.0); Blood Urea Nitrogen 15 mg/dL (9-23); Glucose 119 mg/dL (74-106)
[2024-09-18] MEDS: ENOXAPARIN SOD 40 MG/0.4 ML SYRINGE SC ONE (16:09)
--- NOTE | 2024-09-18 16:27 | DVHPN2 ---
Subjective OVERNIGHT EVENTS NOTED. The patient was desatting to 80s on room air, currently on O2 supplementation at 2 L. stat D-dimer is were already which were elevated, we will do the CT angio to rule out PE, incentive spirometry at bedside. 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 Medications Current Medications Medications Dose Ordered Sig/Reagan Route Start Time Stop Time Status Last Admin Dose Admin Tamsulosin HCl 0.4 mg DAILY PO 09/16/24 10:00 09/18/24 09:11 0.4 MG Patient Own Medication 10 mg DAILY PO 09/16/24 10:00 UNV Lactated Ringer's 1,000 ml @ 100 mls/hr Q10H IV 09/15/24 11:00 09/18/24 09:13 100 MLS/HR Sodium Chloride 10 ml Q8HR IV 09/15/24 14:00 09/18/24 16:02 10 ML Oxycodone/ Acetaminophen 1 tab Q4HP PRN PO 09/15/24 11:00 09/18/24 13:34 1 TAB Hydromorphone HCl 1 mg Q2HP PRN IV 09/15/24 11:00 Ondansetron HCl 4 mg Q6HP PRN IV 09/15/24 11:00 Docusate Sodium 100 mg Q12HR PO 09/15/24 22:00 09/18/24 13:33 100 MG Nitroglycerin 0.4 mg Q5MINP PRN SL 09/15/24 11:00 Morphine Sulfate 2 mg Q30M PRN IV 09/15/24 11:00 Cefepime HCl 50 ml @ 12.5 mls/hr DAILY IV 09/16/24 10:00 09/18/24 09:13 12.5 MLS/HR Diphenhydramine HCl 25 mg Q4HP PRN IV 09/15/24 11:15 09/15/24 14:12 25 MG Ondansetron HCl 4 mg Q4HP PRN IV 09/15/24 11:15 Ketorolac Tromethamine 15 mg Q6HP PRN IV 09/15/24 11:15 09/20/24 11:14 09/17/24 23:09 15 MG Amlodipine Besylate 10 mg DAILY PO 09/16/24 10:00 09/18/24 09:10 10 MG Enoxaparin Sodium 40 mg DAILY SC 09/19/24 10:00 Laboratory Results Laboratory Tests 09/18/24 15:33 Chemistry Test 09/18/24 15:33 Calcium Level 10.1 mg/dL (8.7-10.4) Coagulation Test 09/18/24 15:33 D-Dimer, Quantitative 3.62 mg/L FEU (0.0-0.49) H Assessment/Plan Assessment/Plan 79-YEAR-OLD MALE WITH A KNOWN HISTORY OF HYPERTENSION, BPH, LEFT KNEE DEGENERATIVE JOINT DISEASE IS HERE FOR ELECTIVE PROCEDURE. 1. HYPERTENSION CONTROLLED 2. BPH, on TAMSULOSIN 3. LEFT KNEE DEGENERATIVE JOINT DISEASE STATUS POST LEFT TOTAL KNEE ARTHROPLASTY 4. Acute hypoxia suspected secondary to atelectasis, rule out pulmonary embolism 5. Elevated D-dimer to rule out PE , although clinical suspicion is low -continue DVT prophylaxis. -CT angio to rule out PE, incentive spirometry at bedside -hold discharge tonight, the patient can be discharged tomorrow if CT angio is negative for PE. Plan discussed with: Patient My Orders Orders - JAS SU MD Procedure Category Date Status Time Discontinue Tele FAYE 09/17/24 In Process 16:44 Enoxaparin Sodium PHA 09/19/24 In Process (Lovenox) 10:00 Communication Order ORDERS 09/18/24 Transmitted 15:[address] 09/18/24 Logged Contrast 16:13 Bilat Lower Dvt US 09/18/24 Logged 16:22 Date of Service: September 18, 2024 Billing Provider: JAS SU MD Common Visit Codes: NOT BILLABLE JAS SU MD September 18, 2024 16:27
[2024-09-18] MEDS ORDERED: IOHEXOL 350 MG/ML 100ML IJ ONE (16:39)
--- NOTE | 2024-09-18 17:30 | DVH ---
Indication: R/O PE Technique: CT axial images of the chest are obtained with intravenous contrast per CT angiogram prot ocol. Coronal and sagittal reformats were obtained. Radiation Dose Information: CTDI volume is 23.92 mGy. Dose-length product is 860.49 mGy*cm Comparison: None FINDINGS: No filling defect within the main , left and right pulmonary arteries. Trachea patent. No pneumothorax. Bilateral atelectasis. 5 mm left lower lobe solid nodule. Heart enlarged. Small pericardial effusion. Coronary artery calcification disease. Aortic atheroscl erotic disease. 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 No aggressive osseous process. IMPRESSION: 1. No evidence for large pulmonary embolism. 2. Atherosclerotic disease. 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 Recom mend thoracic surgery consultation for further management. 3. Cardiomegaly. Small pericardial effusion. Coronary artery calcification disease. 4. 5 mm left lower lobe solid nodule. Recommend follow-up per Fleischner society criteria. 5. Other findings as described.
--- NOTE | 2024-09-18 17:49 | DVH ---
Bilateral lower extremity venous duplex Clinical History: Rule out DVT Comparison: None Technique: Duplex Doppler evaluation of the deep venous systems of both lower extremities from the common femora l veins to the popliteal veins including color Doppler and spectral/pulsed waveform analysis was perf ormed. Findings: RIGHT SIDE: The common femoral vein demonstrates appropriate compressibility and waveform variability. There is compressibility/patency of the great saphenous vein at the proximal thigh. The femoral vein demonstrates appropriate compressibility and waveform variability. The deep femoral vein demonstrates appropriate compressibility and waveform variability. The popliteal vein demonstrates appropriate compressibility and waveform variability. There is normal compressibility at the tibioperoneal trunk. LEFT SIDE: The common femoral vein demonstrates appropriate compressibility and waveform variability. There is compressibility/patency of the great saphenous vein at the proximal thigh. The femoral vein demonstrates appropriate compressibility and waveform variability. The deep femoral vein demonstrates appropriate compressibility and waveform variability. The popliteal vein demonstrates appropriate compressibility and waveform variability. There is normal compressibility at the tibioperoneal trunk. Suggestion of a pseudo aneurysm of the right popliteal artery with thrombus. Impression: 1. No right or left femoropopliteal venous thrombosis. 2. 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
[2024-09-19 05:00] VITALS: BP 141/79; PULSE 68; RESP 18; TEMP 98.6; O2SAT 94
[2024-09-19 06:22] LABS: Anion Gap 7 (5-15); Carbon Dioxide 29 mmol/L (20-31); Chloride 100 mmol/L (98-107); Sodium 136 mmol/L (136-145)
[2024-09-19 06:23] LABS: Calcium 9.4 mg/dL (8.7-10.4)
[2024-09-19 06:28] LABS: BUN/Creatinine Ratio 18.8 (10.0-20.0); Blood Urea Nitrogen 15 mg/dL (9-23); Glucose 103 mg/dL (74-106)
[2024-09-19 09:00] VITALS: BP 144/76; PULSE 71; RESP 17; TEMP 98.4; O2SAT 94
[2024-09-19] MEDS: ENOXAPARIN SOD 40 MG/0.4 ML SYRINGE SC SCH (09:04)
--- NOTE | 2024-09-19 12:08 | DVHPN2 ---
Subjective OVERNIGHT EVENTS NOTED. PATIENT'S CT ANGIO SHOWS NO EVIDENCE OF PE. 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 Medications Current Medications Medications Dose Ordered Sig/Reagan Route Start Time Stop Time Status Last Admin Dose Admin Tamsulosin HCl 0.4 mg DAILY PO 09/16/24 10:00 09/19/24 09:03 0.4 MG Patient Own Medication 10 mg DAILY PO 09/16/24 10:00 UNV Sodium Chloride 10 ml Q8HR IV 09/15/24 14:00 09/19/24 05:16 10 ML Oxycodone/ Acetaminophen 1 tab Q4HP PRN PO 09/15/24 11:00 09/19/24 09:03 1 TAB Hydromorphone HCl 1 mg Q2HP PRN IV 09/15/24 11:00 Ondansetron HCl 4 mg Q6HP PRN IV 09/15/24 11:00 Docusate Sodium 100 mg Q12HR PO 09/15/24 22:00 09/19/24 09:03 100 MG Nitroglycerin 0.4 mg Q5MINP PRN SL 09/15/24 11:00 Morphine Sulfate 2 mg Q30M PRN IV 09/15/24 11:00 Cefepime HCl 50 ml @ 12.5 mls/hr DAILY IV 09/16/24 10:00 09/19/24 09:04 12.5 MLS/HR Diphenhydramine HCl 25 mg Q4HP PRN IV 09/15/24 11:15 09/15/24 14:12 25 MG Ketorolac Tromethamine 15 mg Q6HP PRN IV 09/15/24 11:15 09/20/24 11:14 09/19/24 11:24 15 MG Amlodipine Besylate 10 mg DAILY PO 09/16/24 10:00 09/19/24 09:03 10 MG Enoxaparin Sodium 40 mg DAILY SC 09/19/24 10:00 09/19/24 09:04 40 MG Laboratory Results Laboratory Tests 09/18/24 15:33 09/19/24 05:24 Chemistry Test 09/18/24 15:33 09/19/24 05:24 Calcium Level 10.1 mg/dL (8.7-10.4) 9.4 mg/dL (8.7-10.4) Coagulation Test 09/18/24 15:33 D-Dimer, Quantitative 3.62 mg/L FEU (0.0-0.49) H Assessment/Plan Assessment/Plan 79-YEAR-OLD MALE WITH A KNOWN HISTORY OF HYPERTENSION, BPH, LEFT KNEE DEGENERATIVE JOINT DISEASE IS HERE FOR ELECTIVE PROCEDURE. 1. HYPERTENSION CONTROLLED 2. BPH, on TAMSULOSIN 3. LEFT KNEE DEGENERATIVE JOINT DISEASE STATUS POST LEFT TOTAL KNEE ARTHROPLASTY 4. Acute hypoxia suspected secondary to atelectasis, ruleD out pulmonary embolism 5. Elevated D-dimer to ruleD out PE , -continue DVT prophylaxis WITH THE LOVENOX SUBQ -CT angio to ruleD out PE, incentive spirometry at bedside -PLEASE DISCHARGE THE PATIENT ON CONTINUOUS O2 SUPPLEMENTATION BY NASAL CANNULA AT 2 L. Plan discussed with: Patient My Orders Orders - JAS SU MD Procedure Category Date Status Time Enoxaparin Sodium PHA 09/19/24 In Process (Lovenox) 10:00 Communication Order ORDERS 09/18/24 Transmitted 15:[address] 09/18/24 Resulted Contrast 16:13 Bilat Lower Dvt US 09/18/24 Resulted 16:22 Communication Order ORDERS 09/18/24 Transmitted 16:23 Incentive Spirometry ORDERS 09/18/24 Transmitted Q 1hr 16:52 Discharge DISCHARGE 09/19/24 Verified 12:05 Date of Service: September 19, 2024 Billing Provider: JAS SU MD Common Visit Codes: NOT BILLABLE JAS SU MD September 19, 2024 12:08
[2024-09-19 13:00] VITALS: BP 135/77; PULSE 78; RESP 17; TEMP 99; O2SAT 94
[2024-09-19 14:03] VITALS: BP 135/77; PULSE 78; RESP 17; TEMP 99; O2SAT 94
[2024-09-19 17:00] VITALS: BP 117/60; PULSE 67; RESP 16; TEMP 97.7; O2SAT 95
== END 2024-09-19 18:50 | DRG 470 ==
LOC: SUR 07:09 → OVERFLOW 10:52 → CENTRAL 15:46 → TELE-CENTR 23:14 → CENTRAL 09-17 17:43
PROVIDERS: ADMIT Hospitalist; ATTEND Hospitalist
PROC: 8E0YXBZ Computer Assisted Procedure of Lower Extremity (ICD-10-PCS; 2024-09-15)
PROC: 0SRD0J9 Replacement of Left Knee Joint with Synthetic Substitute, Cemented, Open Approach (ICD-10-PCS; principal; 2024-09-15 09:33)
DX: M17.12 Unilateral primary osteoarthritis, left knee (principal); J98.11 Atelectasis; R09.02 Hypoxemia; I10 Essential (primary) hypertension; N40.0 Benign prostatic hyperplasia without lower urinary tract symptoms; R79.89 Other specified abnormal findings of blood chemistry; M21.062 Valgus deformity, not elsewhere classified, left knee; Z83.3 Family history of diabetes mellitus
CPT/HCPCS: 36415; 71275; 73562; 80048; 85025; 85379; 86850; 86900; 86901; 93970; 97110; 97116; 97163; 97530; G0378; J0131; J1885; J2250; J2405; J2704; J3490